=== PATIENT | male | born 1985 | race Caucasian/White ===

== ENCOUNTER 2018-02-15 19:04 | Emergency (ER) | payer MEDICAID ==
--- NOTE | 2018-02-15 19:17 | Emergency Department Record ---
History of Present Illness - General Chief Complaint: Fall Injury Stated Complaint: FELL HIT HEAD /HEAD LAC Time Seen by Provider: 02/15/18 19:11 Source: Patient Mode of Arrival: Ambulatory Limitations: No limitations - History of Present Illness Initial Comments: 32 yo male presents to ED for evaluation following a syncopal episode that resulted in fall and injury to back of the head. Patient does report drinking alcohol recently, denies previous episodes of syncope of any medications that he takes at this baseline. Patient denies other injury on examination, and denies numbness, tingling, or weakness to the extremities on examination. MD Complaint: Fall Onset/Timin -: Minutes(s) Fall From: Down stairs (#) When Fall Occurred: Just prior to arrival Fall Witnessed: Yes, by family Place Fall Occurred: Home Loss of Consciousness: Other Prolonged Down Time?: No Symptoms Prior to Fall: None Location: Head Quality: Aching - [place] Coma Scale Eye Response: (4) Open spontaneously Motor Response: (6) Obeys commands Verbal Response: (5) Oriented [place] Total: 15 - Related Data Home Medications Medication Instructions Recorded Confirmed Last Taken No Home Med [NO HOME MEDS] 02/15/18 02/15/18 Unknown Allergies Allergy/AdvReac Type Severity Reaction Status Date / Time No Known Drug Allergies Allergy Verified 02/15/18 19:17 Review of Systems Constitutional: Denies: Chills, Fever, Malaise, Night sweats Eyes: Denies: Eye discharge, Eye pain ENT: Denies: Congestion, Ear pain, Epistaxis Respiratory: Denies: Cough, Dyspnea Cardiovascular: Reports: Syncope. Denies: Chest pain, Dyspnea on exertion Endocrine: Denies: Fatigue, Heat or cold intolerance Gastrointestinal: Denies: Abdominal pain, Nausea, Vomiting Genitourinary: Denies: Incontinence, Retention Musculoskeletal: Denies: Arthralgia, Back pain, Gout, Joint swelling Skin: Denies: Bruising, Change in color Neurological: Reports: Headache. Denies: Abnormal gait, Confusion, Numbness, Tingling, Tremors Psychiatric: Denies: Anxiety Hematological/Lymphatic: Denies: Anemia, Blood Clots Physical Exam - General General Appearance: Alert, Oriented x3, Cooperative, Mild distress Limitations: No limitations - Head Head exam detail: Laceration (2.5 cm linear scalp laceration to the posterior scalp). negative: Abrasion, Contusion, Basilio's sign, General tenderness, Hematoma - Eye Eye exam: Normal appearance. negative: Conjunctival injection, Periorbital swelling, Periorbital tenderness, Scleral icterus - ENT Ear exam: negative: Auricular hematoma, Auricular trauma Nasal Exam: negative: Active bleeding, Discharge, Dried blood, Foreign body Mouth exam: negative: Drooling, Laceration, Muffled voice, Tongue elevation - Neck Neck exam: Normal inspection. negative: Meningismus, Tenderness - Respiratory Respiratory exam: Normal lung sounds bilaterally. negative: Respiratory distress, Rhonchi, Stridor, Wheezes - Cardiovascular Cardiovascular Exam: Regular rate, Normal rhythm, Normal heart sounds - GI/Abdominal GI/Abdominal exam: Soft. negative: Rebound, Rigid, Tenderness - Rectal Rectal exam: Deferred - exam: Deferred - Extremities Extremities exam: Normal inspection. negative: Calf tenderness, Pedal edema, Tenderness - Back Back exam: Denies: CVA tenderness (R), CVA tenderness (L) - Neurological Neurological exam: Alert, Normal gait, Oriented X3 - Psychiatric Psychiatric exam: Normal affect, Normal mood - Skin Skin exam: Normal color. negative: Abrasion Type of lesion: negative: abrasion Course Vital Signs 02/15/18 19:11 Temperature 97.6 F Pulse Rate [ 78 Pulse Ox Probe] Respiratory 20 Rate Blood Pressure 95/66 [Left Arm] Pulse Ox 99 - Reevaluation(s) Reevaluation #1: 02/15/18 19:25 EKG: NSR 72 Normal axis, Normal intervals J-point elevation present likely due to thin chest wall Reevaluation #2: 02/15/18 19:52 Laboratory studies were reviewed and are grossly unremarkable for an acute process except for alcohol 0.213. CT Imaging pending. Reevaluation #3: 02/15/18 20:07 CT Brain: No acute process CT Cervical Spine: No acute traumatic injury Emphysema lung apices Dental caries Cerume right EAC Procedure Note: 2.5 cm laceration to the posterior scalp, bleeding controlled. Wound was cleaned and prepped in sterile fashion, no residual FB identified on examination. Laceration was repaired with scalp kaye in interrupted fashion (#5). Patient tolerated the procedure well without complications. Medical Decision Making - Lab Data Result diagrams: 02/15/18 19:28 02/15/18 19:28 Disposition Disposition: Discharge Clinical Impression: Syncope Qualifiers: Syncope type: unspecified Qualified Code(s): R55 - Syncope and collapse Scalp laceration Qualifiers: Encounter type: initial encounter Qualified Code(s): S01.01XA - Laceration without foreign body of scalp, initial encounter Alcohol intoxication Qualifiers: Complication of substance-induced condition: uncomplicated Qualified Code(s): F10.920 - Alcohol use, unspecified with intoxication, uncomplicated Disposition: Home, Self-Care Condition: (2) Stable Instructions: [facility] (ED) Additional Instructions: Return to ED if your symptoms worsen or if you have any concerns. Follow-up with your family doctor in 3-5 days as directed. Cameron out in 10-14 days. Forms: Patient Portal Access Time of Disposition: 20:18 Quality - Quality Measures Quality Measures: N/A - Blood Pressure Screening Does Patient Have Any of the Following: No Blood Pressure Classification: Hypertensive Reading Systolic Measurement: 100 Diastolic Measurement: 90 Screening for High Blood Pressure: < First Hypertensive BP, F/U Documented > [ [id number]] First Hypertensive Follow-up Interventions: Referral to alternative/primary care provider.
[2018-02-15 19:31] LABS: BASO % 0.6 % (0-6); EOS % 0.3 % (0-6); GRAN % 53.6 % (47-80); HEMATOCRIT 44.8 % (42.0-52.0); HEMOGLOBIN 15.2 gm/dl (14.0-18.0); LYMPH % 39.3 % (16-45); MEAN CELL VOLUME 90.9 fl (81-97); MEAN CORPUSCULAR HEMOGLOBIN 30.8 pg (27-33); MEAN CORPUSCULAR HGB CONC 33.9 g/dl (32-36); MEAN PLATELET VOLUME 9.3 fl (7.4-10.4); MONO % 6.2 % (0-9); PLATELET COUNT 333 K/uL (130-400); RED BLOOD COUNT 4.93 M/uL (4.40-5.70); RED CELL DISTRIBUTION WIDTH 13.3 % (11.5-14.5); WHITE BLOOD COUNT W/O DIFF 10.3 K/uL (4.2-12.2)
[2018-02-15 19:45] LABS: BLOOD UREA NITROGEN 10 mg/dL (6-20); CREATININE 0.8 mg/dL (0.7-1.2); EST GLOMERULAR FILTRATION RATE > 60 mL/min
[2018-02-15 19:46] LABS: ALCOHOL 0.213 g/dL (0-0.010)
[2018-02-15 19:47] LABS: GLUCOSE,RANDOM 107 mg/dL (74-109)
[2018-02-15 19:50] LABS: ALB/GLOB RATIO 2.2 (1.1-1.8); ALBUMIN 4.8 g/dL (4.0-5.0); ALKALINE PHOSPHATASE 80 U/L (40-129); ALT/SGPT 22 U/L (<41); AST/SGOT 30 U/L (10.0-50.0)
[2018-02-15] MEDS ORDERED: Diph,Pert(Acell),Tet Vac 0.5 ML SYR IM ONE (20:18)
--- NOTE | 2018-02-17 09:22 | CT SCAN REPORT ---
EXAM: HEAD CT HISTORY: HEAD INJURY, PATIENT FELL. PATIENT PASSED OUT GOING DOWN STEPS AND HIT BACK OF HEAD ON A DOOR, FEELING LIGHTHEADED AND DIZZY. TECHNIQUE: Axial CT scan of the head was performed without IV contrast. Comparison: None. Encounter: Initial. FINDINGS: No definite acute intracranial hemorrhage evident. No focal mass effect or midline shift evident. No definite acute infarct or intracranial mass lesion seen. Small air fluid level left maxillary sinus and clinical correlation as to sinusitis suggested. No depressed calvarial fracture evident. IMPRESSION: 1. NO DEFINITE ACUTE INTRACRANIAL HEMORRHAGE OR FOCAL MASS EFFECT EVIDENT. 2. SMALL AIR FLUID LEVEL LEFT MAXILLARY SINUS. JOB NUMBER: [id number] AND [id number] [facility]
--- NOTE | 2018-02-17 09:30 | CT SCAN REPORT ---
EXAM: EMERGENCY CT SCAN OF THE CERVICAL SPINE HISTORY: PATIENT FELL WITH NECK INJURY. TECHNIQUE: Axial CT scan of the entire cervical spine was performed without IV contrast. Comparison: None. Encounter: Initial. FINDINGS: Some mild apical pleural thickening is present. No apical pneumothorax evident. There are probably some tiny apical bullae present, however, and clinical correlation as to paraseptal emphysema is suggested. Numerous dental caries are evident and dental consultation is suggested. Small air fluid level left maxillary sinus and there are probably cysts or polyps in both maxillary antra. There is probably some cerumen in the right external auditory canal and correlation with physical exam is suggested. No definite fracture of the cervical spine identified and no prevertebral soft tissue swelling is evident. The cervical intervertebral disk spaces are maintained. IMPRESSION: 1. NO DEFINITE FRACTURE OR PREVERTEBRAL SOFT TISSUE SWELLING SEEN IN THE CERVICAL SPINE. 2. CYSTS OR POLYPS IN BOTH MAXILLARY ANTRA PROBABLY WITH A SMALL AIR FLUID LEVEL LEFT MAXILLARY SINUS. 3. NUMEROUS DENTAL CARIES AND DENTAL CONSULTATION SUGGESTED. 4. PROBABLE CERUMEN IN THE RIGHT EXTERNAL AUDITORY CANAL. 5. APPEARANCE SUGGESTING PARASEPTAL EMPHYSEMA AND CLINICAL CORRELATION SUGGESTED. [facility]: [id number] [facility]
== END 2018-02-15 20:31 | disposition home or self-care (01) ==
LOC: ER 19:04
DX: S01.01XA Laceration without foreign body of scalp, initial encounter (principal); R55 Syncope and collapse; F10.920 Alcohol use, unspecified with intoxication, uncomplicated; Y90.7 Blood alcohol level of 200-239 mg/100 ml; W10.9XXA Fall (on) (from) unspecified stairs and steps, initial encounter; Y92.009 Unspecified place in unspecified non-institutional (private) residence as the place of occurrence of the external cause
CPT/HCPCS: 12001; 70450; 72125; 80053; 80320; 85027; 90715; 93005; 93010; 96372; 99284